=== PATIENT | male | born 1965 | race Caucasian/White ===

== ENCOUNTER 2020-05-11 20:21 | Emergency (ER) | payer BC ==
[~2020-05-11] VITALS: Ht 188 cm; Wt 93.2 kg
[2020-05-11 20:24] VITALS: BP 141/87
[2020-05-11 21:35] VITALS: PULSE 70
== END 2020-05-11 21:03 | disposition home or self-care (01) ==
LOC: COL.ER 20:21
DX: S61.412A Laceration without foreign body of left hand, initial encounter (principal); W26.0XXA Contact with knife, initial encounter